=== PATIENT | male | born 1955 | race Caucasian/White ===

== ENCOUNTER 2018-02-04 08:09 | Day surgery (SDC) | payer OTHER ==
[2018-01-28 11:43] VITALS: BMI 25.2
[~2018-02-04 08:09] MED LIST: DEXAMETHASONE SOD PHOSPHATE 10 MG/ML 1 ML VIAL IV ONE; HEPARIN SODIUM,PORCINE 5,000 UNIT/ML 1 ML VIAL SQ ONE; HYDROmorphone 0.5 MG/0.5 ML SYRINGE IVP PRN; LIDOCAINE 1% 20 ML VIAL (10MG/ML) FOR IV START INTRADERMA PRN; MIDAZOLAM 2 MG/2 ML VIAL IV PRN; SCOPOLAMINE 1.5MG/72HR PATCH TRANSDERM ONE; ceFAZolin IN SWFI 2 GM/20 ML SYRINGE IVP ONE
--- NOTE | 2018-02-04 09:03 | P.GSHP ---
History of Present Illness H&P Date: 02/04/18 Chief Complaint: Left inguinal hernia This is a 62-year-old male referred by the clock. Patient developed complaints of a painful mass in the left groin. He presents today for laparoscopic robotic system repair of left inguinal hernia. Patient is a previous right inguinal hernia.. He has complaints of some burning discomfort in the right groin. Past Medical History Past Medical History: Cancer, Hearing Disorder / Deafness, Hyperlipidemia, Hypertension, Osteoarthritis (OA) Additional Past Medical History / Comment(s): Skin Cancer, History of Any Multi-Drug Resistant Organisms: None Reported Past Surgical History: Hernia Repair, Orthopedic Surgery Additional Past Surgical History / Comment(s): Colonoscopy, rt shoulder surgery Past Anesthesia/Blood Transfusion Reactions: No Reported Reaction Smoking Status: Never smoker - Past Family History Mother Family Medical History: No Reported History Medications and Allergies Home Medications Medication Instructions Recorded Confirmed Type Aspirin 81 mg PO DAILY 01/10/15 01/28/18 History Benazepril HCl 20 mg PO DAILY 01/10/15 02/04/18 History traMADol HCl [Ultram] 50 mg PO Q6H PRN #30 tab 01/11/15 02/04/18 Rx EPINEPHrine [Epipen 2-Elie] 0.3 mg IM ONCE PRN #0.3 ml 07/11/15 02/04/18 Rx ALPRAZolam [Xanax] 0.25 mg PO Q8HR PRN 01/28/18 02/04/18 History Cholecalciferol [Vitamin D3] 5,000 unit PO DAILY 01/28/18 02/04/18 History [place]-3 Fatty Acids [[place]-3] 1,000 mg PO DAILY 01/28/18 02/04/18 History Potassium Chloride [Klor-Con 10] 10 meq PO DAILY 01/28/18 02/04/18 History amLODIPine [Norvasc] 10 mg PO HS 01/28/18 02/04/18 History Allergies Allergy/AdvReac Type Severity Reaction Status Date / Time bee venom protein (honey bee) Allergy Rash/Hives, Verified 02/04/18 08:48 SWELLING Surgical - Exam - General well developed, no distress - Eyes PERRL - ENT normal pinna - Neck no masses - Respiratory normal expansion, normal respiratory effort - Cardiovascular Rhythm: regular - Abdomen Abdomen: soft, non tender Assessment and Plan Assessment: Left inguinal hernia. We'll perform laparoscopic robotic-assisted repair.
[2018-02-04] MEDS: LACTATED RINGERS 1,000 ML IV SCH ×3 (09:15→09:33)
[2018-02-04] MEDS ORDERED: BUPIVACAINE (PF) 0.25% 30 ML VIAL SQ ONE (09:23)
[2018-02-04] MEDS ORDERED: SUCCINYLCHOLINE CHLORIDE 100 MG/5 ML SYR IV ONE (09:30)
[2018-02-04] MEDS ORDERED: ROCURONIUM BROMIDE 10 MG/ML 10 ML VIAL IV ONE (09:30)
[2018-02-04] MEDS ORDERED: GLYCOPYRROLATE 0.2 MG/ML 2 ML VIAL ONE (09:30)
[2018-02-04] MEDS ORDERED: NEOSTIGMINE 1 MG/ML 10 ML VIAL ONE (09:30)
[2018-02-04] MEDS ORDERED: KETOROLAC 30 MG/ML 1 ML VIAL ONE (09:30)
[2018-02-04] MEDS ORDERED: PROPOFOL 10 MG/ML 20 ML VIAL IV ONE (09:30)
[2018-02-04] MEDS ORDERED: MIDAZOLAM 2 MG/2 ML VIAL ONE (09:30)
[2018-02-04] MEDS ORDERED: fentaNYL (PF) 50 MCG/ML 2 ML AMP ONE (09:30)
[2018-02-04] MEDS ORDERED: LIDOCAINE 1% INJ 10MG/ML (20 ML MDV) ONE (09:30)
[2018-02-04] MEDS: ONDANSETRON 4 MG/2 ML VIAL IVP ONE ×2 (09:31→11:38)
[2018-02-04 10:31] VITALS: TEMP 97.5
[2018-02-04] MEDS: fentaNYL (PF) 50 MCG/ML 2 ML AMP IV PRN ×4 (10:42→11:25)
--- NOTE | 2018-02-04 10:50 | P.OP ---
Date of Procedure: 02/04/18 Preoperative Diagnosis: Left inguinal hernia Postoperative Diagnosis: Left inguinal hernia Cord lipoma Procedure(s) Performed: Laparoscopic robotic-assisted repair of left inguinal hernia Excision of cord lipoma Anesthesia: ERIS Surgeon: Luke Mendoza Estimated Blood Loss (ml): 5 Pathology: other (Cord lipoma) Condition: stable Disposition: PACU Description of Procedure: The patient's placed on the operating table in the supine position. The patient received general anesthesia. The patient's abdomen was prepped and draped in usual sterile fashion. The skin was anesthetized 1% local Xylocaine at the incision sites. Using an 11 blade a skin incision was made at the umbilicus. The fascia was grasped with a [place] and then the peritoneal cavity was entered with the Veress needle. Position of the Veress needle was confirmed with a positive drop test. After adequate insufflation a 5 mm trocar was placed into the peritoneal cavity. The Laparoscope was placed the peritoneal cavity. And a robotic 8 mm trocar was placed in the right lateral position and then another 8 mm robotic trochars placed in the left lateral position. The original 5 mm trocar was exchanged for a 12 mm trocar. The patient was placed in reverse Trendelenburg and then the patient was docked to the robot. Next the peritoneum over top of the hernia was incised and then using blunt and sharp dissection and electrocautery the hernia sac was dissected free from the floor of the inguinal canal. There was a cord lipoma dissected free. The hernia sac was completely reduced into the peritoneal cavity. And then using the Pro electrocardiogram technician mesh the hernia was repaired. The peritoneum was then sutured with 20V lock suture. The patient was then undocked the robot. The needle was withdrawn from the peritoneal cavity. The umbilical trocar site was closed with 0 Ethibond suture. The skin was closed interrupted 3-0 Monocryl suture. Dermabond dressing was applied. Patient was sent to recovery in stable condition.
[2018-02-04] MEDS ORDERED: LACTATED RINGERS 1,000 ML IV ONE (11:45)
[2018-02-04] MEDS ORDERED: HYDROcodone/APAP 10-325MG 1 EACH TAB PO ONE (12:18)
[2018-02-04] MEDS ORDERED: HYDROcodone/APAP 7.5-325MG 1 EACH TAB PO ONE (12:22)
[2018-02-04 12:47] VITALS: RESP 18
[2018-02-04 13:50] VITALS: BP 161/98; PULSE 76
== END 2018-02-04 14:02 | disposition home or self-care (01) ==
LOC: OR 08:09
PROVIDERS: ATTEND Surgery
DX: K40.90 Unilateral inguinal hernia, without obstruction or gangrene, not specified as recurrent (principal); D17.6 Benign lipomatous neoplasm of spermatic cord; K21.9 Gastro-esophageal reflux disease without esophagitis; I10 Essential (primary) hypertension; E78.5 Hyperlipidemia, unspecified; F41.9 Anxiety disorder, unspecified; M19.90 Unspecified osteoarthritis, unspecified site; Z85.828 Personal history of other malignant neoplasm of skin; Z79.82 Long term (current) use of aspirin; Z79.899 Other long term (current) drug therapy; Z91.030 Bee allergy status
CPT/HCPCS: 49650; S2900; 88304

== ENCOUNTER → 2021-01-06 | Outpatient (CLI) | payer OTHER ==
--- NOTE | 2021-01-07 11:55 | US ---
EXAMINATION TYPE: US thyroid st tissue head/neck DATE OF EXAM: 01/06/2021 COMPARISON: NONE CLINICAL HISTORY: R59.0 Enlarged Lymph Nodes. Patient states having a left neck palpable x 1 year. P atient was pointing to submandibular gland. Left neck scanned. Submandibular imaged with contralateral images. Submandibular gland appears withi n normal limits. Lymph node visualized in left neck = 1.2 x 0.8 x 0.6 cm. Incidental finding: Left CCA bulb wall thickening. IMPRESSION: 1. Lymph node lateral neck. 2. Left carotid bulb wall thickening noted. 3. Submandibular gland at the location of the palpable abnormality appears within normal limits
== END ==
LOC: RADUSWWP 16:06
PROVIDERS: ATTEND Family Medicine
DX: R59.0 Localized enlarged lymph nodes (principal)
CPT/HCPCS: 76536

== ENCOUNTER 2021-01-12 08:18 | Day surgery (SDC) | payer OTHER ==
[2021-01-10 17:22] VITALS: BMI 26.5
[~2021-01-12 08:18] MED LIST changes: -DEXAMETHASONE SOD PHOSPHATE 10 MG/ML 1 ML VIAL IV ONE; -HEPARIN SODIUM,PORCINE 5,000 UNIT/ML 1 ML VIAL SQ ONE; -HYDROmorphone 0.5 MG/0.5 ML SYRINGE IVP PRN; +LACTATED RINGERS 1,000 ML IV SCH; +LIDOCAINE 1% (10MG/ML) FOR IV START INTRADERMA PRN; -LIDOCAINE 1% 20 ML VIAL (10MG/ML) FOR IV START INTRADERMA PRN; -MIDAZOLAM 2 MG/2 ML VIAL IV PRN; -SCOPOLAMINE 1.5MG/72HR PATCH TRANSDERM ONE; -ceFAZolin IN SWFI 2 GM/20 ML SYRINGE IVP ONE
[2021-01-12 08:53] VITALS: RESP 16; TEMP 98.4
[2021-01-12] MEDS ORDERED: LIDOCAINE 1% (10MG/ML) FOR IV START INTRADERMA ONE (09:04)
[2021-01-12] MEDS ORDERED: PROPOFOL 10 MG/ML 20 ML VIAL IV ONE (09:58)
--- NOTE | 2021-01-12 10:33 | P.PCN ---
Date of Procedure: 01/12/21 Description of Procedure: BRIEF HISTORY: Patient is a 65-year-old male presented for outpatient colonoscopy for screening for malignant neoplasm of the colon. Patient reports multiple colonoscopies in the past and has previously had polypectomy. Last colonoscopy 5 years ago. No change in bowel habits or family history of colon cancer. PROCEDURE PERFORMED: Colonoscopy with polypectomy. PREOPERATIVE DIAGNOSIS: Screening for malignant neoplasm of the colon, last colonoscopy 5 years ago, does report a history of polypectomy in the past. ESTIMATED BLOOD LOSS: Minimal. IV sedation per Anesthesia. PROCEDURE: After informed consent was obtained, the patient, was brought into the endoscopy unit. IV sedation was administered by Anesthesia under continuous monitoring. Digital rectal examination was normal. Initially the Olympus CF-190 flexible video colonoscope was then inserted in the rectum, gradually advanced into the cecum without any difficulty. Careful examination was performed as the scope was gradually being withdrawn. Ileocecal valve and the appendiceal orifice were visualized and appeared normal. Prep was excellent. Mucosa of the cecum, ascending colon, transverse colon, descending colon, sigmoid colon, and rectum appeared normal, with a few scattered diverticula in the sigmoid colon consistent with mild sigmoid diverticulosis. A diminutive 2 mm splenic flexure polyp was removed with cold forcep polypectomy. Retroflexion was performed in the rectum and no lesions were seen, low-grade internal hemorrhoids noted. The patient tolerated the procedure well. IMPRESSION: Diminutive splenic flexure polyp removed with cold forcep polypectomy. Mild sigmoid diverticulosis. Internal hemorrhoids RECOMMENDATIONS: Findings of this examination were discussed with the patient and his family. Okay to resume diet. Okay to resume medications. Await pathology from polypectomy. Recommend repeat colonoscopy in 5 years for history of colon polyps any pathology for polypectomy..
[2021-01-12 10:52] VITALS: BP 152/92; PULSE 66
== END 2021-01-12 11:34 | disposition home or self-care (01) ==
LOC: ORWHC2ENDO 08:18
PROVIDERS: ATTEND Internal Medicine
DX: Z12.11 Encounter for screening for malignant neoplasm of colon (principal); K63.5 Polyp of colon; K57.30 Diverticulosis of large intestine without perforation or abscess without bleeding; I10 Essential (primary) hypertension; E78.5 Hyperlipidemia, unspecified; K64.8 Other hemorrhoids; Z86.010 Personal history of colon polyps; Z79.899 Other long term (current) drug therapy; Z91.030 Bee allergy status
CPT/HCPCS: 88305; 45380; J2704

== ENCOUNTER → 2021-02-09 | Outpatient (CLI) | payer OTHER ==
--- NOTE | 2021-02-09 11:52 | US ---
EXAMINATION TYPE: US carotid duplex BILAT DATE OF EXAM: 02/09/2021 COMPARISON: NONE CLINICAL HISTORY: I65.29 Occlusion and stenosis of unspecified carotid. Stenosis vision problems. EXAM MEASUREMENTS: RIGHT: Peak Systolic Velocity (PSV) cm/sec ----- Right CCA: 77.9 ----- Right ICA: 111.3 ----- Right ECA: 54.6 ICA/CCA ratio: 1.4 RIGHT: End Diastole cm/sec ----- Right CCA: 19.8 ----- Right ICA: 29.9 ----- Right ECA: 15.4 LEFT: Peak Systolic Velocity (PSV) cm/sec ----- Left CCA: 70.6 ----- Left ICA: 180.3 ----- Left ECA: 101.7 ICA/CCA ratio: 2.6 LEFT: End Diastole cm/sec ----- Left CCA: 16.9 ----- Left ICA: 54.8 ----- Left ECA: 21.5 VERTEBRALS (direction of flow): Right Vertebral: Antegrade Left Vertebral: Antegrade Rhythm: Normal Grayscale images show severe eccentric plaque right carotid bulb, there is less prominent plaque left carotid bulb. Velocity measurements and ratios however remain within normal limits and visualized po rtion of both internal carotid arteries. IMPRESSION: No hemodynamically significant stenosis seen in either internal carotid artery. Criteria for Assigning % of Stenosis / Diameter reduction (Estimation based on the indirect measurements of the internal carotid artery velocities (ICA PSV). 1. Normal (no stenosis)=ICA PSV < 125 cm/s: ratio < 2.0: ICA EDV<40 cm/s. 2. Less than 50% stenosis=ICA PSV < 125 cm/s: ratio < 2.0: ICA EDV<40 cm/s. 3. 50 to 69% stenosis=ICA PSV of 125 to 230 cm/s: ration 2.0 ? 4.0: ICA EDV 40-100 cm/s. 4. Greater than 70% stenosis to near occlusion= ICA PSV > 230 cm/s: ratio > 4.0: ICA EDV > 100 cm/s. 5. Near occlusion= ICA PSV velocities may be low or undetectable: variable ratio and ICA EDV. 6. Total occlusion=unable to detect flow.
== END | disposition home or self-care (01) ==
LOC: RADUSWWP 10:52
DX: I65.29 Occlusion and stenosis of unspecified carotid artery (principal)
CPT/HCPCS: 93880

== ENCOUNTER → 2021-09-13 | Outpatient (CLI) | payer OTHER ==
--- NOTE | 2021-09-13 21:54 | CONS ---
CONSULTATION DATE OF SERVICE: 09/13/2021 This 66-year-old gentleman has been evaluated in the sleep center for possible obstructive sleep apnea-hypopnea syndrome. HISTORY OF PRESENT ILLNESS/SLEEP-WAKE EVALUATION: Patient's usual sleep schedule is from 10 p.m. until between 4 and 6 a.m. No problems with falling asleep. No TV in bedroom. The patient usually sleeps on the back and side positions. He snores and wakes up from sleep up to 2 times with nocturia. During the day, the patient feels sleepiness. [place] Sleepiness Scale increased to 12. He takes a nap around 3 or 5 p.m. No history of hypnagogic hallucinations, sleep paralysis or cataplexy. PAST MEDICAL HISTORY: Positive for hypertension, hyperlipidemia, hernia repair, questionable heart attack many years ago, basal cell carcinoma. PAST SURGICAL HISTORY: Multiple surgeries for removing basal cell carcinoma from the face. MEDICATIONS: Lisinopril/hydrochlorothiazide once a day, amlodipine 5 mg half tablet once a day. SOCIAL HISTORY: Negative for smoking. Alcohol consumption occasional. FAMILY HISTORY: Cancer. REVIEW OF SYSTEMS: Awakenings from sleep, snoring, sleepiness during the day. No fevers. No double vision. No recent chest pain. No shortness of breath. No abdominal pain. No bleeding episodes. No blood in the urine. No seizure episodes. PHYSICAL EXAMINATION: GENERAL: Pleasant gentleman without distress. VITAL SIGNS: BP 145/91, HR 67, RR 15, height 5 feet 9-3/4 inches, weight 180.7, body mass index 26, temperature 97.3, oxygen saturation at room air 97%. HEENT: PERRLA, EOMI, evaluation of oropharynx showed tongue protrudes midline. Low position of soft palate; Mallampati III. Big uvula. NECK: Supple, no JVD. Thyroid is not palpable. Neck measures 15-1/2 inches in circumference. LUNGS: Clear to percussion and to auscultation. Good air exchange. No wheezing or rhonchi. HEART: S1, S2 regular. No murmurs, gallops, or rubs. ABDOMEN: Soft and nontender. Bowel sounds are present. No organomegaly appreciated. EXTREMITIES: No clubbing or cyanosis. EXPERIMENTAL PSYCHOLOGIST: Awake, alert, and oriented X3. Cranial nerves 2 to 7 intact. There is no fasciculation or atrophy. noted. No focal deficits observed. IMPRESSION: 1. Snoring, multiple awakenings from sleep, low position of soft palate; possible obstructive sleep apnea-hypopnea syndrome. 2. Hypertension. 3. Hyperlipidemia. 4. History of questionable heart attack many years ago. 5. History of basal cell carcinoma of the face, treated multiple times. 6. Status post hernia repair. PLAN: 1. Polysomnography for evaluation of patient's breathing during sleep. 2. CPAP/BiPAP titration if sleep study confirms obstructive sleep apnea-hypopnea syndrome. 3. Preferable position during sleep on the side. 4. No driving if patient feels any sleepiness. 5. I will see patient for follow up visit to explain results of testing and following plan. Thank you very much for referring this patient for consultation. Sincerely, Trav Lawler MD, PhD, FAASM Diplomat of [employer] Sleep Medicine Board of [employer] Customer Service Engineer of [facility] [place] [id number] / IJN: [id number] /
== END | disposition home or self-care (01) ==
LOC: SLEEP 15:38
PROVIDERS: ATTEND Internal Medicine
DX: G47.33 Obstructive sleep apnea (adult) (pediatric) (principal); I10 Essential (primary) hypertension; E78.5 Hyperlipidemia, unspecified; Z85.828 Personal history of other malignant neoplasm of skin; Z98.890 Other specified postprocedural states

== ENCOUNTER → 2021-12-20 | Outpatient (CLI) | payer OTHER ==
--- NOTE | 2021-12-20 18:14 | SFUN ---
SLEEP CENTER FOLLOW UP NOTE DATE OF SERVICE: 12/20/2021 This 66-year-old gentleman has come to Sleep Center to discuss results of his sleep study and following plan. I discussed the results of his diagnostic polysomnogram with the patient in detail. No significant respiratory abnormalities were documented during the sleep study. Apnea- hypopnea index 2.6. Oxygen level was below normal range only for 0.3 minute. Normal oxygenation during sleep. Significant periodic limb movements, 68.8 per hour, with 0.3 microarousal per hour, were documented. Clinically the patient does not have complaints of any leg movements at night. He does not feel that that creates any problems for him. [place] Sleepiness Scale today is 8, which is in normal range. Sometimes, though, the patient may feel sleepy during the day. Previously [place] Sleepiness Scale was increased during previous visit. MEDICATIONS: Lisinopril/hydrochlorothiazide and amlodipine. PHYSICAL EXAMINATION: GENERAL: Pleasant patient in no distress. VITAL SIGNS: BP 134/93, HR 88, RR 16, temperature 97.8, oxygen saturation at room air 93%. HEENT: PERRLA, EOMI, evaluation of oropharynx showed tongue protrudes midline. Low position of soft palate; Mallampati III. Big uvula. NECK: Supple, no JVD. Thyroid is not palpable. LUNGS: Clear to percussion and to auscultation. Good air exchange. No wheezing or rhonchi. HEART: S1, S2 regular. No murmurs, gallops, or rubs. ABDOMEN: Soft and nontender. Bowel sounds are present. No organomegaly appreciated. EXTREMITIES: No clubbing or cyanosis. DRILLING MANAGER: Awake, alert, and oriented X3. Cranial nerves 2 to 7 intact. There is no fasciculation or atrophy. noted. No focal deficits observed. IMPRESSION: 1. No significant respiratory abnormalities were documented during the sleep study. No significant oxygen desaturation. 2. Severe periodic limb movements were documented, but with only a few microarousals related to abnormalities of movement; total amount 68.8 per hour with 0.1 microarousal per hour. 3. Hypertension. 4. Hyperlipidemia. 5. History of basal cell carcinoma of the face, treated surgically. 6. Status post hernia repair. PLAN: 1. Sleep hygiene with regular time in bed for at least 7-1/2 to 8 hours. 2. Precautions related to driving. No driving if feeling any sleepiness. The patient is aware of civil and criminal liability for unsafe driving. 3. Please check iron profile, including ferritin level. Low level of iron may increase risk for periodic limb movements. 4. I discussed with the patient the possibility of using pharmacotherapy for periodic limb movements. At present he prefers not to start any additional medications. 5. I discussed with the patient the possibility of doing a multiple sleep latency test for objective evaluation of his symptoms of excessive daytime sleepiness, although again today his [place] Sleepiness Scale is normal, but during his previous visit, [place] Sleepiness Scale was increased. At the present time he prefers not to proceed with this additional testing. 6. Follow-up visit in one year or earlier if patient has any problems. Thank you very much for allowing me to participate in the management of your patient. Sincerely, Trav Lawler MD, PhD, FAASM Diplomat of [employer] Sleep Medicine Board of [employer] Corrections Sergeant of [facility] [place] [email or web address] / LILLIAM: [id number] /
== END | disposition home or self-care (01) ==
LOC: SLEEP 16:29
PROVIDERS: ATTEND Internal Medicine
DX: I10 Essential (primary) hypertension (principal); E78.5 Hyperlipidemia, unspecified; Z85.828 Personal history of other malignant neoplasm of skin; Z98.890 Other specified postprocedural states